=== PATIENT | female | born 1980 | race American Indian/Alaskan Native ===

== ENCOUNTER 2019-08-20 11:13 | Emergency (ER) | payer OTHER ==
--- NOTE | 2019-08-20 15:02 | Emergency Department Report ---
HPI - General Chief Complaint: Extremity Injury, Lower Time Seen by Provider: 08/20/19 14:52 - HPI HPI: Room 43 The patient is a 38-year-old female presenting with chief complaint of right lower kidney pain. The patient states for the past 3-4 days she's had pain behind her right thigh whenever she stands or ambulates. Patient states the pain sometimes radiates to her ankle or upper thigh. Patient denies any recent trauma. Patient denies chest pain or skin changes. Location: [See above] Duration: [See above] Quality: [See above] Severity: [See above] Timing: [See above] Context: [See above] Modifying factors: [See above] Associated signs and symptoms: [see above] ED Past Medical Hx - Past Medical History Previous Medical History?: No - Surgical History Additional Surgical History: hysterctomy - Family History Family history: no significant - Social History Smoking Status: Current Every Day Smoker (1/3 pack per day) Substance Use Type: None (denies illicit drug use), Alcohol (occasional) - Medications Home Medications: Home Medications Medication Instructions Recorded Confirmed Last Taken Type Ibuprofen [Motrin 800 MG tab] 800 mg PO Q8HR PRN #20 tablet 08/20/19 Unknown Rx traMADoL [Ultram] 50 mg PO Q6HR PRN #10 tablet 08/20/19 Unknown Rx ED Review of Systems ROS: Stated complaint: RT LEG CRAMP/BODY SORE/PAIN Other details as noted in HPI Constitutional: no symptoms reported Eyes: denies: eye pain ENT: denies: throat pain Respiratory: denies: shortness of breath Cardiovascular: denies: chest pain Endocrine: no symptoms reported Gastrointestinal: denies: abdominal pain Genitourinary: denies: dysuria Musculoskeletal: myalgia Neurological: denies: headache Physical Exam - Physical Exam Vital Signs: Vital Signs 08/20/19 11:29 Temperature 97.8 F Pulse Rate 105 H Respiratory 18 Rate Blood Pressure 150/100 O2 Sat by Pulse 97 Oximetry Physical Exam: GENERAL: The patient is well-developed well-nourished female sitting in chair not appearing to be in acute distress. [] HEENT: Normocephalic. Atraumatic. Extraocular motions are intact. Patient has moist mucous membranes. NECK: Supple. Trachea midline CHEST/LUNGS: There is no respiratory distress noted. HEART/CARDIOVASCULAR: Regular. There is no tachycardia. 2+ right DP SKIN: There is no rash. There is no edema. There is no diaphoresis. NEURO: The patient is awake, alert, and oriented. The patient is cooperative. The patient has no focal neurologic deficits. The patient has normal speech MUSCULOSKELETAL: There is no tenderness to palpation of the right calf or thigh ED Course Vital Signs 08/20/19 11:29 Temperature 97.8 F Pulse Rate 105 H Respiratory 18 Rate Blood Pressure 150/100 O2 Sat by Pulse 97 Oximetry ED Medical Decision Making - Radiology Data Radiology results: report reviewed (right lower extremity Doppler), image reviewed (right lower extremity Doppler) [facility] [address] [place] [address] Vascular Lab Report Signed Patient: LUIS FERNANDO SCHWARTZ MR# : [id number] : 1980 Acct:[id number] Age/Sex: 38 / F ADM Date: 08/20/19 Loc: ED Attending Dr: Ordering Physician: GOLDIE WALL MD Date of Service: 08/20/19 Procedure(s): VL venous duplex LE RT Accession Number(s): [id number] cc: GOLDIE WALL MD DUPLEX VENOUS DOPPLER RIGHT LOWER EXTREMITY INDICATION: pain TECHNIQUE: Duplex doppler imaging was performed through the veins of the right lower extremity using venous compression and other maneuvers. COMPARISON: None available. FINDINGS: Common Femoral vein: Negative. Superficial Femoral vein: Negative. Popliteal vein: Negative. Calf veins: Negative. Additional findings: None. IMPRESSION: No evidence of deep venous thrombosis. Signer Name: Jamie Bazan MD Signed: 08/20/2019 4:16 PM Workstation Name: [id number] Transcribed By: GJ Dictated By: Jamie Bazan MD Electronically Authenticated By: Jamie Bazan MD Signed Date/Time: 08/20/19 161 DD/ 14 TD/TT: - Differential Diagnosis sciatica, myalgia, leg sprain, DVT Critical care attestation.: If time is entered above; I have spent that time in minutes in the direct care of this critically ill patient, excluding procedure time. ED Disposition Clinical Impression: Right leg pain Disposition: DC-01 TO HOME OR SELFCARE Is pt being admited?: No Does the pt Need Aspirin: No Condition: Stable Instructions: Lumbar Radiculopathy (ED) Additional Instructions: Return to the emergency department should you develop worsening symptoms, inability to tolerate food or liquids, high fever or any other concerns Prescriptions: Ibuprofen [Motrin 800 MG tab] 800 mg PO Q8HR PRN #20 tablet PRN Reason: Pain, Moderate (4-6) traMADoL [Ultram] 50 mg PO Q6HR PRN #10 tablet PRN Reason: Pain Referrals: CHAD WILBURN MD [Staff Physician] - 3-5 Days (Dr. Wilburn is an orthopedic surgeon. Please follow-up with him for further evaluation) DELFINA LESTER MD [Staff Physician] - 3-5 Days (Dr Lester is a primary physician. Please follow-up with him to be established as a patient if you do not have a primary doctor) Time of Disposition: 16:23
--- NOTE | 2019-08-20 16:20 | Vascular Lab Report ---
DUPLEX VENOUS DOPPLER RIGHT LOWER EXTREMITY INDICATION: pain TECHNIQUE: Duplex doppler imaging was performed through the veins of the right lower extremity using venous compression and other maneuvers. COMPARISON: None available. FINDINGS: Common Femoral vein: Negative. Superficial Femoral vein: Negative. Popliteal vein: Negative. Calf veins: Negative. Additional findings: None. IMPRESSION: No evidence of deep venous thrombosis. Signer Name: Jamie Bazan MD Signed: 08/20/2019 4:16 PM Workstation Name: [id number]
[2019-08-20 16:58] VITALS: BP 138/88
== END 2019-08-20 16:57 | disposition home or self-care (01) ==
LOC: ED 11:13
DX: M79.651 Pain in right thigh (principal); F17.200 Nicotine dependence, unspecified, uncomplicated; F10.10 Alcohol abuse, uncomplicated; Z90.710 Acquired absence of both cervix and uterus; Z79.899 Other long term (current) drug therapy

== ENCOUNTER 2020-07-20 13:07 | Emergency (ER) | payer SELFPAY ==
[2020-07-20 14:02] VITALS: BP 131/105
--- NOTE | 2020-07-20 15:07 | Emergency Department Report ---
Chief Complaint: Extremity Injury, Upper Stated Complaint: PAIN - HPI History of Present Illness: 39-year-old -Luxembourger female presents to the emergency room for right leg pain that radiates down to her foot. Patient denies any injury but reports that she had this in the past approximately 1 year ago. Patient reports she took an ibuprofen which helps some with the pain but she wanted to get checked out before he got to worse. Patient denies any injury. - Exam Vital Signs: Vital Signs 07/20/20 14:01 Temperature 98.3 F Pulse Rate 90 Respiratory 20 Rate Blood Pressure 131/105 O2 Sat by Pulse 98 Oximetry Physical Exam: Alert and oriented x3 no acute distress nontoxic in appearance Full range of motion of all extremities Ambulatory without difficulties. MSE screening note: Focused history and physical exam performed. Due to findings the following was ordered: 39-year-old -Luxembour[place] female presents to the emergency room for right leg pain that radiates down to her foot. Patient denies any injury but reports that she had this in the past approximately 1 year ago. Patient reports she took an ibuprofen which helps some with the pain but she wanted to get checked out before he got to worse. Patient denies any injury. ED Disposition for MSE Disposition: Z-07 MED SCREENING EXAM-LEFT Is pt being admited?: No Does the pt Need Aspirin: No Condition: Stable Instructions: Sciatica, [id number] Additional Instructions: you can take 1 g of extra strength Tylenol every 4-6 hours or ibuprofen 800 mg every 6-8 hours or Aleve 440 mg every 12 hours. Warm heat Biofreeze or Aspercreme to your leg. Referrals: DELIA CISSE MD [Staff Physician] - 3-5 Days [facility] [Provider Group] - 3-5 Days Forms: Work/School Release Form(ED)
== END 2020-07-20 15:20 | disposition left against medical advice (07) ==
LOC: ED 13:07
DX: M79.604 Pain in right leg (principal); Z53.21 Procedure and treatment not carried out due to patient leaving prior to being seen by health care provider